=== PATIENT | female | born 1955 | race Caucasian/White ===

== ENCOUNTER 2024-02-13 09:22 | Emergency (ER) | payer MEDICARE, OTHER ==
[~2024-02-13] VITALS: Ht 148.6 cm; Wt 69.9 kg
[2024-02-13 09:36] VITALS: BP 114/47; PULSE 82; RESP 20; TEMP 96.7; O2SAT 98
[2024-02-13] MEDS: ACETAMINOPHEN 325 MG TAB PO ONE (10:11)
[2024-02-13] MEDS ORDERED: DICL100G32 TP (10:58)
[2024-02-13 11:01] VITALS: BP 109/64; PULSE 77; RESP 16; TEMP 98; O2SAT 99
== END 2024-02-13 11:01 | disposition home or self-care (01) ==
LOC: MED 09:22
DX: S93.402A Sprain of unspecified ligament of left ankle, initial encounter (principal); S80.02XA Contusion of left knee, initial encounter; S80.01XA Contusion of right knee, initial encounter; M19.90 Unspecified osteoarthritis, unspecified site; Z79.899 Other long term (current) drug therapy; W18.39XA Other fall on same level, initial encounter; Y93.89 Activity, other specified; Y92.89 Other specified places as the place of occurrence of the external cause; Y99.8 Other external cause status
CPT/HCPCS: 73562; 73610; 99284